=== PATIENT | male | born 1940 | race Two or more races ===

== ENCOUNTER 2017-01-13 20:58 | Emergency (ER) | payer MEDICARE ==
[~2017-01-13] VITALS: Ht 167.6 cm; Wt 90.4 kg
[~2017-01-13 20:58] MED LIST: AMOX1TAB64 PO; ASPI-515 PO; DONE5TAB7 PO; FINA5TAB4 PO; HYDR-3240 PO; INSU100V8 SQ; METF500T4 PO; RAMI10CA PO; SIMV20TA3 PO; TAMS0.4C2 PO
[2017-01-13] MEDS ORDERED: SODIUM CHLORIDE FLUSH 10ML SYR IVF ONE (23:00)
[2017-01-13] MEDS ORDERED: SODIUM CHLORIDE 0.9% 1,000ML IVBOLUS ONE (23:00)
[2017-01-13] MEDS ORDERED: MORPHINE SULFATE 4 MG/ML, 1ML IVPush PRN (23:00)
[2017-01-13] MEDS ORDERED: ONDANSETRON 2MG/ML, 2ML IVPush ONE (23:00)
[2017-01-13] MEDS ORDERED: ONDANSETRON 2MG/ML, 2ML ONE (23:04)
[2017-01-13] MEDS ORDERED: MORPHINE SULFATE 4 MG/ML, 1ML ONE (23:04)
[2017-01-13 23:16] LABS: HEMATOCRIT 39.6 % (39.2-51.8); HEMOGLOBIN 13.1 g/dL (13.7-18.0); WHITE BLOOD COUNT 8.9 x10^3/uL (3.4-10)
[2017-01-13 23:27] LABS: ASPARTATE AMINO TRANSFERASE 22 U/L (15-37); BLOOD UREA NITROGEN 12 mg/dL (7-18)
[2017-01-13 23:31] LABS: IS PT STATUS REG ER OR PRE ER? YES
[2017-01-14] MEDS ORDERED: OMNIPAQUE 350 MG/ML, 100ML BOTTLE ONE (00:08)
[2017-01-14 01:18] VITALS: BP 128/75
== END 2017-01-14 01:21 | disposition home or self-care (01) ==
LOC: ED 23:22
DX: J15.9 Unspecified bacterial pneumonia (principal); E11.9 Type 2 diabetes mellitus without complications; I10 Essential (primary) hypertension
CPT/HCPCS: 36415; 71010; 74177; 80053; 81001; 83690; 84484; 85025; 87086; 93005; 96361; 96374; 96375; 99285; J2405; J7030; Q9967

== ENCOUNTER 2020-07-07 12:02 | Emergency (ER) | payer MEDICARE ==
[~2020-07-07] VITALS: Ht 167.6 cm; Wt 84.0 kg
[~2020-07-07 12:02] MED LIST changes: -ASPI-515 PO; +ASPI-963 PO; +HYDR-1067 PO; -HYDR-3240 PO; +METF500T17 PO; -METF500T4 PO; -RAMI10CA PO; +RAMI10CA59 PO; +SIMV20TA19 PO; -SIMV20TA3 PO
--- NOTE | 2020-07-07 12:26 | NUR ---
PT CAME IN [place] RIGHT EYE AND EIGHT ELBOW AFTER A GLF YESTERDAY. PT DAUGHTER "HIS KNEES JUST GAVE OUT". DAUGHTER ALSO STATES "HE HAS BEEN A LITTLE CONFUSED LATELY". CONNECTED TO MONITORING EQUIPMENT RESTING IN [facility]. DAUGHTER BEDSIDE.
[2020-07-07] MEDS ORDERED: ONDANSETRON ODT 4 MG ONE (12:52)
[2020-07-07] MEDS ORDERED: HYDROcodone/APAP 5/325 TABLET ONE (12:53)
[2020-07-07] MEDS ORDERED: HYDROcodone/APAP 5/325 TABLET PO ONE (13:00)
[2020-07-07] MEDS ORDERED: ONDANSETRON ODT 4 MG PO ONE (13:00)
--- NOTE | 2020-07-07 13:00 | NUR ---
PT MEDICATED PER MAR
--- NOTE | 2020-07-07 13:27 | NUR ---
PT TO CT AT THIS TIME
[2020-07-07 13:52] VITALS: BP 104/64
--- NOTE | 2020-07-07 13:52 | NUR ---
PT UP FOR RECHECK
--- NOTE | 2020-07-07 14:05 | NUR ---
REPORT RECEIVED FROM AYESHA SHEA
--- NOTE | 2020-07-07 14:55 | NUR ---
Discharge instructions reviewed, sling placed.
== END 2020-07-07 14:57 | disposition home or self-care (01) ==
LOC: ED 14:02
DX: S50.01XA Contusion of right elbow, initial encounter (principal); S09.90XA Unspecified injury of head, initial encounter; I10 Essential (primary) hypertension; E11.9 Type 2 diabetes mellitus without complications; W01.0XXA Fall on same level from slipping, tripping and stumbling without subsequent striking against object, initial encounter; Y93.89 Activity, other specified; Y92.520 Airport as the place of occurrence of the external cause; Y99.8 Other external cause status
CPT/HCPCS: 70450; 70486; 73080; 99285; Q0162

== ENCOUNTER → 2020-07-23 | Outpatient (CLI) | payer MEDICARE | END | disposition home or self-care (01) | LOC: CVU 07:28 | PROVIDERS: ATTEND Internal Medicine Cardiovascular Disease | DX: M79.604 Pain in right leg (principal); M79.605 Pain in left leg | CPT/HCPCS: 93922 ==

== ENCOUNTER → 2020-09-16 | Outpatient (CLI) | payer MEDICARE ==
[~2020-09-16] MED LIST changes: -HYDR-1067 PO; +HYDR-2214 PO
== END | disposition home or self-care (01) ==
LOC: RAD 10:59
PROVIDERS: ATTEND Physical Medicine & Rehabilitation
DX: M51.17 Intervertebral disc disorders with radiculopathy, lumbosacral region (principal); M48.07 Spinal stenosis, lumbosacral region
CPT/HCPCS: 72148

== ENCOUNTER → 2020-11-05 | Outpatient (CLI) | payer MEDICARE ==
[~2020-11-05] MED LIST changes: +LISI-170 PO; +OMEP40CA8 PO
[2020-11-05 10:21] LABS: BASOPHILS % (AUTO) 1 % (0-1); EOSINOPHILS % (AUTO) 2 % (1-7); LYMPHOCYTES % (AUTO) 22 % (22-44); MEAN CORPUSCULAR HEMOGLOBIN 29.4 pg (27.5-34.5); MEAN CORPUSCULAR HGB CONC 34.1 g/dL (33.2-36.2); MEAN PLATELET VOLUME 6.5 fL (7.4-10.4); MONOCYTES % (AUTO) 7 % (2-9); NEUTROPHILS % (AUTO) 68 % (42-75); PLATELET COUNT 349 x10^3/uL (130-400); RED BLOOD COUNT 5.26 x10^6/uL (4.38-5.82); RED CELL DISTRIBUTION WIDTH 13.8 % (9.4-14.8)
[2020-11-05 10:31] LABS: ALANINE AMINOTRANSFERASE 22 U/L (12-78); ALBUMIN 4.1 g/dL (3.4-5.0); ANION GAP 5 mmol/L (5-15); CALCIUM 9.6 mg/dL (8.5-10.1); CHLORIDE 105 mmol/L (98-107); CREATININE 0.79 mg/dL (0.7-1.3)
[2020-11-05 10:32] LABS: INTERNATIONAL NORMALIZED RATIO 1.05 (0.93-1.1); PROTHROMBIN TIME 11.2 Seconds (9.6-11.5)
[2020-11-05 10:33] LABS: ALKALINE PHOSPHATASE 51 U/L (45-117); BILIRUBIN,TOTAL 0.6 mg/dL (0.2-1.0); TOTAL PROTEIN 8.2 g/dL (6.4-8.2)
== END | disposition home or self-care (01) ==
LOC: STAR 08:07
PROVIDERS: ATTEND Neurological Surgery
DX: Z01.812 Encounter for preprocedural laboratory examination (principal); Z01.811 Encounter for preprocedural respiratory examination; Z01.818 Encounter for other preprocedural examination; R79.1 Abnormal coagulation profile; R82.90 Unspecified abnormal findings in urine; M48.061 Spinal stenosis, lumbar region without neurogenic claudication; M43.06 Spondylolysis, lumbar region; M54.16 Radiculopathy, lumbar region; R94.31 Abnormal electrocardiogram [ECG] [EKG]; E65 Localized adiposity; M51.36 Other intervertebral disc degeneration, lumbar region; M25.78 Osteophyte, vertebrae; I45.10 Unspecified right bundle-branch block
CPT/HCPCS: 36415; 71046; 72110; 80053; 83036; 85025; 85610; 85730; 93005; U0003; U0005

== ENCOUNTER 2021-01-02 08:30 | Outpatient (CLI) | payer MEDICARE ==
[2021-01-02 09:35] LABS: BASOPHILS % (AUTO) 1 % (0-1); EOSINOPHILS % (AUTO) 2 % (1-7); LYMPHOCYTES % (AUTO) 27 % (22-44); MEAN CORPUSCULAR HGB CONC 33.2 g/dL (33.2-36.2); MEAN PLATELET VOLUME 6.4 fL (7.4-10.4); MONOCYTES % (AUTO) 9 % (2-9); NEUTROPHILS % (AUTO) 61 % (42-75); PLATELET COUNT 352 x10^3/uL (130-400); RED BLOOD COUNT 5.61 x10^6/uL (4.38-5.82); RED CELL DISTRIBUTION WIDTH 14.3 % (9.4-14.8)
[2021-01-02 09:41] LABS: MICROSCOPIC NOT IND
[2021-01-02 09:47] LABS: ALBUMIN 4.1 g/dL (3.4-5.0); ANION GAP 9 mmol/L (5-15); CALCIUM 9.3 mg/dL (8.5-10.1); CHLORIDE 103 mmol/L (98-107)
[2021-01-02 09:48] LABS: INTERNATIONAL NORMALIZED RATIO 1.02 (0.93-1.1); PROTHROMBIN TIME 10.9 Seconds (9.6-11.5)
[2021-01-02 09:51] LABS: ALANINE AMINOTRANSFERASE 21 U/L (12-78); ALKALINE PHOSPHATASE 56 U/L (45-117); BILIRUBIN,TOTAL 0.8 mg/dL (0.2-1.0); CREATININE 0.78 mg/dL (0.7-1.3); TOTAL PROTEIN 8.4 g/dL (6.4-8.2)
[2021-01-02] MEDS ORDERED: TRAM50TA2 PO (15:13)
[2021-01-02] MEDS ORDERED: FINA5TAB4 PO (15:13)
[2021-01-15] MEDS ORDERED: METH-640 PO (11:50)
[2021-01-15] MEDS ORDERED: HYDR-2214 PO (11:50)
== END 2021-01-02 23:59 | disposition home or self-care (01) ==
LOC: STAR 08:30
PROVIDERS: ATTEND Neurological Surgery
DX: Z01.818 Encounter for other preprocedural examination (principal); Z01.812 Encounter for preprocedural laboratory examination; Z01.811 Encounter for preprocedural respiratory examination; Z01.810 Encounter for preprocedural cardiovascular examination; R94.31 Abnormal electrocardiogram [ECG] [EKG]; R82.90 Unspecified abnormal findings in urine; R79.1 Abnormal coagulation profile; M48.061 Spinal stenosis, lumbar region without neurogenic claudication; M43.06 Spondylolysis, lumbar region; M54.16 Radiculopathy, lumbar region
CPT/HCPCS: 36415; 80053; 81003; 85025; 85610; 85730